=== PATIENT | male | born 1955 | race American Indian/Alaskan Native ===

== ENCOUNTER 2018-03-27 13:51 | Emergency (ER) | payer OTHER ==
[2018-03-27 14:36] VITALS: BP 151/85
[2018-03-27] MEDS ORDERED: MOTRIN PO ONE (16:45)
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
== END 2018-03-27 18:36 | disposition home or self-care (01) ==
LOC: ED 13:51
DX: S13.4XXA Sprain of ligaments of cervical spine, initial encounter (principal); V49.49XA Driver injured in collision with other motor vehicles in traffic accident, initial encounter; Y93.89 Activity, other specified; Y92.89 Other specified places as the place of occurrence of the external cause; Y99.8 Other external cause status
CPT/HCPCS: 72040